=== PATIENT | female | born 1955 | race American Indian/Alaskan Native ===

== ENCOUNTER 2017-09-24 16:54 | Emergency (ER) | payer MEDICAID, OTHER ==
[2017-09-24 17:15] VITALS: BP 143/86; PULSE 77; RESP 20; TEMP 98.2; O2SAT 99
== END 2017-09-24 17:16 | disposition left against medical advice (07) ==
LOC: C.ER 16:54
DX: Z02.89 Encounter for other administrative examinations (principal); R10.9 Unspecified abdominal pain

== ENCOUNTER 2019-01-21 15:29 | Emergency (ER) | payer SELFPAY ==
[2019-01-21 15:37] VITALS: PULSE 89; RESP 20; TEMP 98.1; O2SAT 99
[2019-01-21 15:39] VITALS: BP 142/86
--- NOTE | 2019-01-21 17:05 | C.PDOC ---
History Of Present Illness Patient is a 63 year old female who presents to the ED for evaluation of a diffuse itchy rash for the past week. Patient states that she recently moved to a new place since her symptoms began, but states that she has not seen any bugs on the linens. She also reports that she has been taking biotin supplements for the past week. She denies any SOB, wheezing, or fever. Time Seen by Provider: 01/21/19 15:41 Chief Complaint (Nursing): Allergic Reaction History Per: Patient History/Exam Limitations: no limitations Onset/Duration Of Symptoms: Days (one week ) Current Symptoms Are (Timing): Still Present Associated Symptoms: Itching Recent travel outside of the [place]: No Additional History Per: Patient Past Medical History Reviewed: Historical Data, Nursing Documentation, Vital Signs Vital Signs: Last Vital Signs Temp 98.1 F 01/21/19 15:35 Pulse 89 01/21/19 15:35 Resp 20 01/21/19 15:35 BP 142/86 01/21/19 15:35 Pulse Ox 99 01/21/19 15:35 - Medical History PMH: No Chronic Diseases Surgical History: No Surg Hx Family History: States: No Known Family Hx - Social History Hx Alcohol Use: No Hx Substance Use: No - Immunization History Hx Tetanus Toxoid Vaccination: No Hx Influenza Vaccination: No Hx Pneumococcal Vaccination: No Review Of Systems Constitutional: Negative for: Fever Respiratory: Negative for: Shortness of Breath, Wheezing Skin: Positive for: Rash (diffuse itchy rash ) Physical Exam - Physical Exam Appears: Non-toxic, No Acute Distress Skin: Warm, Dry, Rash (scattered maculopapular rash, on extremities rash has appearance of bug bites and also has rash in the interdigitary webs of bilateral hands ) Head: Atraumatic, Normacephalic Oral Mucosa: Moist Tongue: No Swelling Lips: No Swelling Throat: Normal Neck: Normal ROM, Supple Chest: Symmetrical, No Deformity Cardiovascular: Rhythm Regular, No Murmur Respiratory: Normal Breath Sounds, No Rales, No Rhonchi, No Wheezing Neurological/Psych: Oriented x3, Normal Speech ED Course And Treatment O2 Sat by Pulse Oximetry: 99 (on RA) Pulse Ox Interpretation: Normal Progress Note: Plan: Claritin 10mg PO. Prednisone 40mg PO. Dx Scabies Disposition Counseled Patient/Family Regarding: Diagnosis, Need For Followup, Rx Given - Disposition Referrals: [facility] [Outside] Disposition: HOME/ ROUTINE Disposition Time: 17:00 Condition: STABLE Additional Instructions: FOLLOW UP WITH YOUR DOCTOR IN 1-2 DAYS USE MEDICATIONS DIRECTED WASH ALL LINENS IN HOT WATER RETURN TO ER IF SYMPTOMS WORSEN Prescriptions: Loratadine [Claritin] 10 mg PO DAILY PRN #30 tab PRN Reason: Itching / Pruritus Permethrin 5% [Permethrin] 5 unit TP ONCE #1 tube predniSONE [predniSONE Tab] 40 mg PO DAILY #8 tab Instructions: Scabies (DC) Forms: [employer] (Irish) Print Language: SINHALA - Clinical Impression Clinical Impression: Skin rash, Scabies - Scribe Statement The provider has reviewed the documentation as recorded by the Kishan Veliz All medical record entries made by the Tejibjeanette were at my direction and personally dictated by me. I have reviewed the chart and agree that the record accurately reflects my personal performance of the history, physical exam, medical decision making, and the department course for this patient. I have also personally directed, reviewed, and agree with the discharge instructions and disposition.
== END 2019-01-21 17:31 | disposition home or self-care (01) ==
LOC: C.ER 15:29
DX: B86 Scabies (principal)